=== PATIENT | female | born 1985 ===

== ENCOUNTER 2017-01-03 16:50 | Emergency (ER) | payer MEDICAID ==
[2017-01-03 17:00] VITALS: RESP 16
--- NOTE | 2017-01-03 17:19 | ED PDOC ---
Arrival/HPI - General Chief Complaint: Abdominal Pain Time Seen by Provider: 01/03/17 17:10 Historian: Patient - History of Present Illness Narrative History of Present Illness (Text): 01/03/17 17:19 31-year-old female who believes she is approximately 3 months presents today with a 3 week history of lower abdominal cramping and vaginal bleeding that started this morning. Patient with a prior history of ectopic . Patient states her last period was in September but states her periods are irregular. Patient states she's had intermittent nausea and vomiting. She is unsure of her blood type. She denies dizziness or weakness. She is complaining of cramping in the lower abdomen. Patient denies fatigue. Patient states she has not seen a research statistician yet but did a home test that was positive. Time/Duration: > week (3 weeks) Quality: Cramping Severity Level: 6 Past Medical History - Provider Review Nursing Documentation Reviewed: Yes - Travel History Have you recently traveled outside [place] w/in the past 3 mons?: No - Tetanus Immunization Tetanus Immunization: Unknown - Psychiatric Hx Substance Use: No Family/Social History - Physician Review Nursing Documentation Reviewed: Yes Family/Social History: Unknown Family HX Smoking Status: Current Some Days Smoker Hx Alcohol Use: No Hx Substance Use: No Allergies/Home Meds Allergies/Adverse Reactions: Allergies No Known Allergies Allergy (Verified 01/03/17 17:00) Review of Systems - Review of Systems Constitutional: absent: Fatigue, Fevers Respiratory: absent: SOB, Cough Cardiovascular: absent: Chest Pain, Palpitations Gastrointestinal: Abdominal Pain, Nausea, Vomiting Genitourinary Female: Frequency, Vaginal Bleeding. absent: Dysuria, Hematuria Musculoskeletal: absent: Arthralgias, Back Pain, Neck Pain Skin: absent: Rash, Pruritis Psychiatric: absent: Anxiety, Depression, Suicidal Ideation Physical Exam Vital Signs Reviewed: Yes Vital Signs Temp Pulse Resp BP Pulse Ox 01/03/17 17:00 98.1 F 61 16 108/70 100 Temperature: Afebrile Blood Pressure: Normal Pulse: Regular Respiratory Rate: Normal Appearance: Positive for: Well-Appearing, Non-Toxic, Comfortable Pain Distress: None Mental Status: Positive for: Alert and Oriented X 3 - Systems Exam Head: Present: Atraumatic Mouth: Present: Moist Mucous Membranes Neck: Present: Normal Range of Motion Respiratory/Chest: Present: Clear to Auscultation, Good Air Exchange. No: Respiratory Distress, Accessory Muscle Use Cardiovascular: Present: Regular Rate and Rhythm Abdomen: Present: Tenderness (+ lower abdominal tenderness, suprapubic, right and left lower. ). No: Rebound, Guarding Genitourinary/Pelvic Exam: Present: Normal External Genitalia, Vaginal Bleeding (small amount of pink discharge noted), Other (chaparoned by Jessie MACEDO RN. ). No : Vaginal Discharge Back: Present: Normal Inspection. No: CVA Tenderness Upper Extremity: Present: Normal ROM Lower Extremity: Present: Normal ROM. No: Edema Neurological: Present: GCS=15 Skin: Present: Warm, Dry, Normal Color. No: Rashes Psychiatric: Present: Alert, Oriented x 3 Medical Decision Making ED Course and Treatment: 01/03/17 17:23 Patient is nontoxic well appearing in no distress. vital signs are stable. CBC: wnl CMP: wnl Beta hC,391 TYPE AND SCREEN: A- Urinalysis:+ blood, no leukocytes, moderate bacteria Ultrasound:FINDINGS: Fetus: There is a single living intrauterine gestation in transverse presentation. There is a heart rate of 159 beats per minute. Placenta: Placenta is fundal and grade 0. Amniotic fluid: Amnionic fluid volume appears normal Anatomy: Early gestational age limits evaluation of anatomy BIOMETRICS Gestational age by US: 14 weeks 0 days EFW: 87.84 g BPD: 3.29 cm, 14 weeks 0 days HC: 8.96 cm, 14 weeks 0 days AC: 7.46 cm, 14 weeks 0 days FL: 1.37 cm, 14 weeks 0 days MATERNAL: Uterus: Cervix measures 3.7 cm in length Ovaries: Left ovary measures 3 x 1.8 x 2.6 cm. Right ovary measures approximately 4.2 x 2.5 x 2 cm. There is flow in both ovaries on Doppler imaging. Free fluid: There is no free fluid. IMPRESSION: 14 week 0 day single living intrauterine gestation, estimated date of delivery 07/04/17 pts blood type is A-; pt 14 weeks with vaginal bleeding. consent for blood products obtained. Rhogam given macrobid given for uti Discussed all the results the patient. advised f/u with the slate handler within the next 2 days. advised immediate return if symptoms worsen,persist or if new symptoms develop. case discussed with dr. damon. Impression: Threatened , UTI Tylenol every 4 hours as needed for pain Increase fluids Followup with the juice weigher within the next 2 days Return immediately if symptoms worsen persist or if new symptoms develop: High fevers, heavy bleeding, severe abdominal pain, vomiting, diarrhea, dizziness or weakness or any other concerning symptoms develop. vitamins daily Macrobid; 1 tablet twice daily x 10 days. - Lab Interpretations Lab Results: 01/03/17 17:35 01/03/17 17:35 Lab Results 01/03/17 17:35: WBC 8.5, RBC 4.01, Hgb 11.4 L, Hct 33.3 L, MCV 83.0, MCH 28.4, MCHC 34.2, RDW 13.2, Plt Count 296, MPV 9.3, Gran % 68.8 H, Lymph % (Auto) 19.2 L, Evans % (Auto) 10.2 H, Eos % (Auto) 1.4 L, Baso % (Auto) 0.4, Gran # 5.82, Lymph # 1.6, Evans # 0.9 H, Eos # 0.1, Baso # 0.03 01/03/17 17:35: Blood Type A NEGATIVE, Antibody Screen Negative, BBK History Checked No verified bt 01/03/17 17:35: Beta HCG, Quant 12505.00 H 01/03/17 17:35: Sodium 135, Potassium 3.9, Chloride 103, Carbon Dioxide 22, Anion Gap 14, BUN 12, Creatinine 0.5, Est GFR ( Amer) > 60, Est GFR (Non- Af Amer) > 60, Random Glucose 77, Calcium 9.0, Total Bilirubin 0.3, AST 23, ALT 18, Alkaline Phosphatase 67, Total Protein 7.2, Albumin 4.0, Globulin 3.1, Albumin/Globulin Ratio 1.3 01/03/17 17:20: Urine Color Yellow, Urine Appearance Clear, Urine pH 6.0, Ur Specific [place] 1.025, Urine Protein Negative, Urine Glucose (UA) Negative, Urine Ketones Trace H, Urine Blood Small H, Urine Nitrate Negative, Urine Bilirubin Negative, Urine Urobilinogen 0.2, Ur Leukocyte Esterase Negative, Urine RBC 2 - 5, Urine WBC 2 - 5, Ur Epithelial Cells 4 - 5, Urine Bacteria Mod - RAD Interpretation Radiology Orders: 01/03/17 17:12 AGE [US] Stat Disposition/Present on Arrival - Present on Arrival Any Indicators Present on Arrival: No History of DVT/PE: No History of Uncontrolled Diabetes: No Urinary Catheter: No History of Decub. Ulcer: No History Surgical Site Infection Following: None - Disposition Have Diagnosis and Disposition been Completed?: Yes Diagnosis: Threatened , Urinary tract infection Disposition: HOME/ ROUTINE Disposition Time: 21:35 Patient Plan: Discharge Patient Problems: Current Active Problems Problem Status Onset Threatened Acute Urinary tract infection Acute Condition: GOOD Discharge Instructions (ExitCare): Urinary Tract Infection in (ED), Threatened Miscarriage (ED) Additional Instructions: Tylenol every 4 hours as needed for pain Increase fluids Followup with the juice weigher within the next 2 days Return immediately if symptoms worsen persist or if new symptoms develop: High fevers, heavy bleeding, severe abdominal pain, vomiting, diarrhea, dizziness or weakness or any other concerning symptoms develop. vitamins daily Macrobid; 1 tablet twice daily x 10 days. Prescriptions: Nitrofurantoin Macrocrystals [Macrobid] 100 mg PO BID #20 cap Multivit/Folic Acid/I [ Plus] 1 tab PO DAILY #30 tab Referrals: Cady Ragsdale MD [Staff Provider] - Follow up with primary Alexandra Pryor MD [Staff Provider] - [facility] - Follow up with primary Forms: [facility] ([place]), WORK NOTE
[2017-01-03 17:38] LABS: URINE BILIRUBIN NEGATIVE (NEGATIVE); URINE BLOOD SMALL (NEGATIVE); URINE GLUCOSE (UA) NEGATIVE (NEGATIVE); URINE KETONE TRACE mg/dL (NEGATIVE); URINE LEUKOCYTE ESTERASE NEGATIVE Leu/uL (NEGATIVE); URINE PROTEIN NEGATIVE mg/dL (<30 mg/dL); URINE UROBILINOGEN 0.2 E.U./dL (<1 E.U./dL)
[2017-01-03 17:46] LABS: URINE APPEARANCE CLEAR (CLEAR); URINE COLOR YELLOW (YELLOW)
[2017-01-03 17:47] LABS: URINE BACTERIA MOD (NEG)
[2017-01-03 17:51] LABS: BASO # 0.03 K/mm3 (0.0-2.0); BASO % 0.4 % (0.0-3.0); EOS # 0.1 (0.0-0.7); EOS % 1.4 % (1.5-5.0); GRAN # 5.82 (1.4-6.5); GRAN % 68.8 % (50.0-68.0); HEMATOCRIT 33.3 % (36.0-48.0); LYMPH # 1.6 (1.2-3.4); LYMPH % 19.2 % (22.0-35.0); MEAN CORPUSCULAR HEMOGLOBIN 28.4 pg (25.0-35.0); MEAN CORPUSCULAR HGB CONC 34.2 g/dl (31.0-37.0); MEAN PLATELET VOLUME 9.3 fl (7.0-11.0); MONO # 0.9 (0.1-0.6); MONO % 10.2 % (1.0-6.0); RED CELL DISTRIBUTION WIDTH 13.2 % (11.5-14.5); WHITE BLOOD COUNT 8.5 10^3/ul (4.5-11.0)
[2017-01-03 18:01] LABS: ALB/GLOB RATIO 1.3 (1.1-1.8); ALKALINE PHOSPHATASE 67 U/L (38-126); ALT/SGPT 18 U/L (7-56); AST/SGOT 23 U/L (14-36); BILIRUBIN,TOTAL 0.3 mg/dL (0.2-1.3); BLOOD UREA NITROGEN 12 mg/dL (7-21); CARBON DIOXIDE 22 mmol/L (21-33); CHLORIDE 103 mmol/L (98-107); GFR AFRICAN-AMERICAN > 60; GLUCOSE,RANDOM 77 mg/dL (70-110); POTASSIUM 3.9 mmol/L (3.6-5.0); SODIUM 135 mmol/L (132-148); TOTAL PROTEIN 7.2 g/dL (5.8-8.3)
--- NOTE | 2017-01-03 20:39 | US ---
EXAM: US After First Trimester, Transabdominal EXAM DATE/TIME: 01/03/2017 5:12 PM CLINICAL HISTORY: 31 years old, female; Pain; complicated by abdominal or pelvic pain; Lower; Second trimester; Gestational age or lmp: [id number]; ; Additional info: Cramping for 2 weeks, bleeding started this morning Pain//bleeding TECHNIQUE: Real-time transabdominal obstetrical ultrasound of the maternal pelvis and a second or third trimester with image documentation. COMPARISON: There are no prior studies for comparison. FINDINGS: Fetus: There is a single living intrauterine gestation in transverse presentation. There is a heart rate of 159 beats per minute. Placenta: Placenta is fundal and grade 0. Amniotic fluid: Amnionic fluid volume appears normal Anatomy: Early gestational age limits evaluation of anatomy BIOMETRICS Gestational age by US: 14 weeks 0 days EFW: 87.84 g BPD: 3.29 cm, 14 weeks 0 days HC: 8.96 cm, 14 weeks 0 days AC: 7.46 cm, 14 weeks 0 days FL: 1.37 cm, 14 weeks 0 days MATERNAL: Uterus: Cervix measures 3.7 cm in length Ovaries: Left ovary measures 3 x 1.8 x 2.6 cm. Right ovary measures approximately 4.2 x 2.5 x 2 cm. There is flow in both ovaries on Doppler imaging. Free fluid: There is no free fluid. IMPRESSION: 14 week 0 day single living intrauterine gestation, estimated date of delivery 07/04/17
[2017-01-03 22:52] VITALS: BP 102/66; PULSE 74; TEMP 98.2; O2SAT 99
== END 2017-01-03 23:04 | disposition home or self-care (01) ==
LOC: ED 16:50
DX: O20.0 Threatened abortion (principal); O23.42 Unspecified infection of urinary tract in pregnancy, second trimester; Z3A.14 14 weeks gestation of pregnancy
CPT/HCPCS: 76815; 80053; 81001; 84702; 85025; 86850; 86900; 87086; 99285; J2792